=== PATIENT | female | born 1990 | race Caucasian/White ===

== ENCOUNTER 2024-01-28 08:44 | Inpatient (IN) | payer BC ==
[2024-01-28] VITALS (7 sets, daily range): BP systolic 104–142; BP diastolic 57–90; PULSE 62–77; TEMP 97.7–98.6
[~2024-01-28] VITALS: Ht 170.2 cm; Wt 127.3 kg
[2024-01-28] MEDS ORDERED: LR & Oxytocin 500 ML IV SCH (18:45)
[2024-01-28] MEDS ORDERED: Penicillin G Potassium 5,000,000 UNITS in NS 100 ML IV ONE (18:45)
[2024-01-28] MEDS ORDERED: LR 1,000 ML IV SCH (18:45)
[2024-01-28] MEDS ORDERED: Terbutaline 1 MG/ML 1 ML AMP SQ PRN (19:30)
--- NOTE | 2024-01-28 20:00 | NUR ---
PATIENT AMBULATORY TO UNIT WITH SPOUSE. DENIES LEAKING OF FLUID, VAGINAL BLEEDING OR CONTRACTIONS. PATIENT CHANGED INTO HOSPTIAL GOWN. EFMX2. QUESTIONS ANSWERED AND INVITED.
[2024-01-28] MEDS ORDERED: miSOPROStol 25 MCG (1/4th of 100 MCG) TAB PO ONE (20:30)
[2024-01-28] MEDS ORDERED: PRENATAL TABLET PO (20:39)
[2024-01-28] MEDS ORDERED: PRILOSEC 20MG20 MG PO (20:40)
--- NOTE | 2024-01-28 21:15 | NUR ---
DIFFICULTY TRACING HEART TONES DUE TO MATERNAL POSITIONING. MONITOR ADJUSTED.
[2024-01-28 21:37] LABS: BASO % 0.3 % (0.0-2.0); EOS # 0.1 K/mm3 (0.0-0.7); GRAN # 6.1 K/mm3 (1.4-6.5); GRAN % 66.2 % (42.2-75.2); HEMOGLOBIN 12.2 g/dl (12.5-16.0); LYMPH # 2.4 K/mm3 (1.2-3.4); LYMPH % 25.4 % (20.0-51.0); MEAN CELL VOLUME 91 fl (80.0-100.0); MEAN CORPUSCULAR HEMOGLOBIN 31 pg (27-31); MEAN CORPUSCULAR HGB CONC 34 g/dl (33.0-37.0); MEAN PLATELET VOLUME 13.4 fl (7.4-10.4); MONO # 0.6 K/mm3 (0.1-0.6); MONO % 6.7 % (1.7-9.3); PLATELET COUNT 174 K/mm3 (130-400); RED BLOOD COUNT 3.98 M/mm3 (4.10-5.30); REDCELL DISTRIBUTION WIDTH-CV 12.5 % (11.5-14.5)
[2024-01-28 21:38] LABS: HEMATOCRIT 36.2 % (37.0-47.0)
[2024-01-28] MEDS ORDERED: Penicillin G Potassium 2,500,000 UNITS in NS 100 ML IV SCH (22:42)
--- NOTE | 2024-01-28 23:20 | NUR ---
2300- PATIENT AMBULATORY ON UNIT 2320- PATIENT ASSISTED BACK TO BED. EFMX2 APPLIED.
[2024-01-29] VITALS (62 sets, daily range): BP systolic 98–188; BP diastolic 53–92; PULSE 55–98; TEMP 97.6–98.2
[2024-01-29] MEDS ORDERED: miSOPROStol 25 MCG (1/4th of 100 MCG) TAB VG SCH (00:30)
[2024-01-29] MEDS ORDERED: miSOPROStol 25 MCG (1/4th of 100 MCG) TAB PO SCH (00:30)
--- NOTE | 2024-01-29 03:00 | NUR ---
DIFFICULTY TRACING HEART TONES DUE TO MATERNAL POSITIONING. MONITOR ADJUSTED.
--- NOTE | 2024-01-29 03:23 | NUR ---
patient called out stating she felt a gush of fluid. amnioswab positive. SROM 0232 clear fluid.
--- NOTE | 2024-01-29 03:50 | NUR ---
0330- PATIENT AMBULATORY ON UNIT 0350- PATIENT ASSISTED BACK TO BED. EFMX2
[2024-01-29] MEDS ORDERED: Penicillin G Potassium 5,000,000 UNITS in NS 100 ML IV ONE (05:00)
--- NOTE | 2024-01-29 05:30 | NUR ---
DIFFICULTY TRACING HEART TONES DUE TO MATERNAL POSITION. MONITOR ADJUSTED.
--- NOTE | 2024-01-29 06:15 | NUR ---
CONTRACTIONS UNABLE TO BE TRACED. PATIENT REPORTS FEELING CRAMPY. TOCO ADJUSTED.
--- NOTE | 2024-01-29 06:30 | NUR ---
CONTRACTIONS UNABLE TO BE TRACED. TOCO ADJUSTED.
--- NOTE | 2024-01-29 06:45 | NUR ---
CONTRACTION UNABLE TO BE TRACED. TOCO ADJUSTED.
--- NOTE | 2024-01-29 06:56 | NUR ---
CONTRACTION PATTERN UNABLE TO BE TRACED.PATIENT REPORTS FEELING CRAMPY.TOCO ADJUSTED
--- NOTE | 2024-01-29 07:02 | NUR ---
CONTRACTIONS UNABLE TO BE TRACED.TOCO ADJUSTED.
--- NOTE | 2024-01-29 07:09 | NUR ---
CONTRACTIONS UNABLE TO BE TRACED. TOCO ADJUSTED.
--- NOTE | 2024-01-29 07:15 | NUR ---
FHR UNABLE TO BE TRACED D/T TO MATERNAL AMBULATION TO BATHROOM. CONTRACTION X1 LASTING APPROXIMATELY 70 SECONDS.
--- NOTE | 2024-01-29 08:15 | NUR ---
CONTRACTIONS AND FHR UNABLE TO BE TRACED D/T MATERNAL POSITIOM. TOCO AND US ADJUSTED.
--- NOTE | 2024-01-29 08:30 | NUR ---
CONTRACTIONS UNABLE TO BE TRACED D/T TO MATERNAL HABITUS.
--- NOTE | 2024-01-29 08:30 | NUR ---
DR. KILPATRICK AT THE BEDSIDE FHR TRACING REVIEWED PLAN OF CARE REVIEWED.
[2024-01-29] MEDS ORDERED: Penicillin G Potassium 2,500,000 UNITS in NS 100 ML IV SCH (09:00)
--- NOTE | 2024-01-29 09:00 | NUR ---
CONTRATIONS UNABLE TO BE TRACED D/T MATERNAL HABITUS. TOCO ADJUSTED.
--- NOTE | 2024-01-29 09:45 | NUR ---
PATIENT UP TO BATHROOM FHR AND CONTRACTIONS UNABLE TO BE TRACED.
--- NOTE | 2024-01-29 10:00 | NUR ---
CONTRACTIONS AND FHR UNABLE TO BE TRACED D/T PATIENT UP TO BATHROOM.
--- NOTE | 2024-01-29 10:30 | NUR ---
1027 PATIENT PLACED ON WIRELESS MONITOR PER HER REQUEST.
--- NOTE | 2024-01-29 10:45 | NUR ---
Pt up ambulating in the hallway and using the wireless EFM. FHR tracing maternal HR, this RN walking with pt and palpating pt's radial pulse with HR in the 80's. Pt back in room and SPO2 monitor placed for 1 minute to confirm maternal HR and EFM adjusted.
--- NOTE | 2024-01-29 12:00 | NUR ---
CONTRACTIONS AND FHR UNABLE TO BE TRACED D/T PATIENT AMBULATION TO BATHROOM.
--- NOTE | 2024-01-29 12:15 | NUR ---
FHR UNABLE TO BE TRACED D/T MATERNAL POSITION. NURSE AT BEDSIDE US ADJUSTED.
--- NOTE | 2024-01-29 12:45 | NUR ---
FHR UNABLE TO BE TRACED D/T MATERNAL POSITION. US ADJUSTED.
--- NOTE | 2024-01-29 12:50 | NUR ---
AT BEDSIDE. FHR TRACING REVIEWED. PLAN OF CARE REVIEWED. SVE /2.
--- NOTE | 2024-01-29 13:15 | NUR ---
CONTRACTIONS UNABLE TO BE TRACED D/T MATERNAL POSITION. TOCO ADJUSTED.
--- NOTE | 2024-01-29 13:30 | NUR ---
CONTRACTIONS UNABLE TO BE TRACED D/T MATERNAL POSITION.
--- NOTE | 2024-01-29 13:45 | NUR ---
CONTRACTIONS UNABLE TO BE TRACED D/T MATERNAL POSITION AND AMBULATION TO BATHROOM.
--- NOTE | 2024-01-29 14:00 | NUR ---
FHR UNABLE TO BE TRACED D/T MATERNAL POSITION. US ADJUSTED.
--- NOTE | 2024-01-29 14:15 | NUR ---
CONTRACTIONS UNABLE TO BE TRACED D/T MATERNAL POSITION.
[2024-01-29] MEDS ORDERED: ROPivacaine PF 0.2% 200 ML IV ONE (14:29)
--- NOTE | 2024-01-29 14:44 | NUR ---
1430 GRACIE HUERTA AT BEDSIDE. PROCEDURE REVIEWED AND CONSENT OBTIANED. PULSE OXIMETER APPLIED. DIFFICULT TRACING FHR D/T MATERNAL POSITION. INTERMITTENTLY TRACING MATERNAL HEART RATE CORRELATES WITH SPO2 MONITOR. 1444 TEST DOSE
[2024-01-29] MEDS ORDERED: diphenhydrAMINE 50 MG/ML 1 ML VIAL IV PRN (15:15)
[2024-01-29] MEDS ORDERED: Ondansetron 4 MG/2 ML VIAL IV PRN ×2 (15:15→23:15)
[2024-01-29] MEDS ORDERED: diphenhydrAMINE 25 MG CAP PO PRN (15:15)
[2024-01-29] MEDS ORDERED: Naloxone 0.4 MG/ML VIAL IV PRN ×2 (15:15→23:15)
[2024-01-29] MEDS ORDERED: ePHEDrine 50 MG/10 ML VIAL IV PRN (15:15)
--- NOTE | 2024-01-29 15:30 | NUR ---
CONTRACTIONS UNABLE TO BE TRACED D/T MATERNAL POSITION
--- NOTE | 2024-01-29 16:20 | NUR ---
Pt reports issues with continued left sided pain after epidural placement and use of epidural bolus. GRACIE Hull at the bedside to adjust epidural. See anesthesia records for details.
--- NOTE | 2024-01-29 17:03 | NUR ---
1650- GRACIE Hull at the bedside for epidural replacement. Assisted pt up to the sitting position on the edge of the bed. Difficult tracing FHR tracing due to maternal position. 170- Dr. Wilson at the bedside. 170- Test dose done per GRACIE Hull. See anesthesia records for details.
--- NOTE | 2024-01-29 17:15 | NUR ---
Dr. Wilson at the bedside. SVE done with no change. Plan of care reviewed and possible discussed with pt and significant other at the bedside.
--- NOTE | 2024-01-29 18:00 | NUR ---
Dr. Wilson at the bedside. SVE done with no change. discussed with pt. Pt verbalized an understanding and agreed with the plan for a .
--- NOTE | 2024-01-29 18:20 | NUR ---
Pt off EFM and to the OR.
[2024-01-29] MEDS ORDERED: Ketorolac 30 MG/ML VIAL ONE (18:24)
[2024-01-29] MEDS ORDERED: Ondansetron 4 MG/2 ML VIAL ONE (18:24)
[2024-01-29] MEDS ORDERED: NS 30 ML IV ONE (18:24)
[2024-01-29] MEDS ORDERED: Oxytocin 10 UNITS/ML VIAL ONE (18:24)
[2024-01-29] MEDS ORDERED: dexAMETHasone 10 MG/ML VIAL ONE (19:03)
[2024-01-29] MEDS ORDERED: EPINEPHrine 1 MG/1 ML Ampule ONE (19:08)
[2024-01-29] MEDS ORDERED: Loratadine 10 MG TAB PO PRN (19:30)
[2024-01-29] MEDS ORDERED: Magnes Hydrox (MOM) 80 MG/ML 30 ML CUP PO PRN (19:30)
[2024-01-29] MEDS ORDERED: Chloroprocaine PF 3% (30 MG/ML) 20 ML VIAL ONE (19:47)
[2024-01-29] MEDS ORDERED: traZODone 50 MG TAB PO PRN (21:00)
[2024-01-29] MEDS ORDERED: Measles/Mumps/Rubella Virus Vaccine Live w Diluent 0.5 ML VIAL SQ SCH (23:15)
[2024-01-29] MEDS ORDERED: LR 1,000 ML IV PRN (23:15)
[2024-01-29] MEDS ORDERED: oxyCODONE/Acetaminophen 5-325 MG TAB PO PRN (23:15)
[2024-01-30] VITALS (7 sets, daily range): BP systolic 112–130; BP diastolic 70–87; PULSE 59–106; TEMP 97.9–99.1
[2024-01-30] MEDS ORDERED: Ibuprofen 800 MG TAB PO SCH (01:30)
[2024-01-30] MEDS ORDERED: Sennosides/Docusate 8.6-50 MG TAB PO SCH (08:00)
--- NOTE | 2024-01-30 13:13 | NUR ---
Initial visit; Mom indisposed, [employer] spoke with Dad offering both him and mom congratulations and God's blessings for the of their son. [employer] thanked family for choosing [facility].
[2024-01-31 07:00] VITALS: BP 120/74; PULSE 69; TEMP 97.7
[2024-01-31] MEDS ORDERED: PERCOCET 325 MG1 TA2 PO (08:17)
[2024-01-31] MEDS ORDERED: MOTRIN 800800 MG/TAB PO (08:17)
== END 2024-01-31 11:10 | disposition home or self-care (01) | DRG 788 ==
LOC: OB 08:44 → LDR 19:55 → OB 01-29 08:28
PROVIDERS: ADMIT Obstetrics & Gynecology
PROC: 10D00Z1 Extraction of Products of Conception, Low, Open Approach (ICD-10-PCS; principal; 2024-01-29)
DX: O48.0 Post-term pregnancy (principal); O99.824 Streptococcus B carrier state complicating childbirth; Z3A.41 41 weeks gestation of pregnancy; Z37.0 Single live birth; O99.214 Obesity complicating childbirth; Z23 Encounter for immunization
CPT/HCPCS: J0171; J0665; J0690; J1100; J1885; J2401; J2405; J2540; J2590; J2795; J7120